=== PATIENT | female | born 1970 | race Caucasian/White ===

== ENCOUNTER 2017-06-08 18:27 | Emergency (ER) | payer OTHER ==
[2017-06-08] MEDS ORDERED: SODIUM CHLORIDE FLUSH 0.9% 10 ML SYRINGE IVP ONE ×3 (19:38→22:14)
--- NOTE | 2017-06-08 19:49 | ED Physician Documentation ---
PD HPI ABD PAIN - Stated complaint Stated Complaint: ABD PX - Chief complaint Chief Complaint: Abd Pain - History obtained from History obtained from: Patient - History of Present Illness Timing - onset: Today Timing - details: Gradual onset Pain level max: 8 Pain level now: 8 Quality: Aching, Pain Location: RUQ, RLQ Radiation: Other (non-radiating) Improved by: Other (nothing) Worsened by: Moving, Palpation Associated symptoms: Nausea. No: Fever, Vomiting, Hematemesis, Diarrhea, Constipation, Melena, Hematochezia, Dysuria, Hematuria Similar symptoms before: Has not had sx before Recently seen: Not recently seen - Additional information Additional information: Patient is status post cholecystectomy in 2007 Review of Systems Ten Systems: 10 systems reviewed and negative Constitutional: denies: Fever, Chills Ears: denies: Ear pain Nose: denies: Rhinorrhea / runny nose, Congestion Throat: denies: Sore throat Cardiac: denies: Chest pain / pressure Respiratory: denies: Cough GI: denies: Hematemesis, Bloody / black stool : denies: Dysuria, Frequency, Hesitancy, Discharge, Now EGA Skin: denies: Rash Musculoskeletal: denies: Neck pain, Back pain Neurologic: denies: Headache PD PAST MEDICAL HISTORY - Past Medical History Past Medical History: Yes GI: GERD - Past Surgical History Past Surgical History: Yes 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 - Present Medications Home Medications: Ambulatory Orders Medication Instructions Recorded Confirmed Ibuprofen 600 mg PO Q6HR PRN #30 tablet 04/13/14 06/08/17 Omeprazole [PriLOSEC] 40 mg PO DAILY 04/13/14 06/08/17 Estradiol 1 mg PO DAILY 08/22/16 06/08/17 Progesterone,Micronized 10 mg PO DAILY 10/24/16 06/08/17 [Progesterone] Hydrocodone/Acetaminophen 1 - 2 each PO Q6H PRN #14 tablet 06/08/17 [Hydrocodon-Acetaminophen 5-325] Ondansetron Odt [Zofran] 4 mg TL Q6H PRN #10 tablet 06/08/17 - Allergies Allergies/Adverse Reactions: Allergies Allergy/AdvReac Type Severity Reaction Status Date / Time amoxicillin [Amoxicillin] Allergy Hives Verified 04/13/14 05:33 - Social History Does the pt smoke?: No Smoking Status: Never smoker Does the pt drink ETOH?: Yes Does the pt have substance abuse?: No - POLST Patient has POLST: No PD ED PE NORMAL - Vitals Vital signs reviewed: Yes - General General: Alert and oriented X 3, No acute distress, Well developed/nourished - HEENT HEENT: Moist mucous membranes - Neck Neck: Supple, no meningeal sign - Cardiac Cardiac: RRR, Strong equal pulses - Respiratory Respiratory: No respiratory distress, Clear bilaterally - Abdomen Abdomen: Normal bowel sounds, Soft, Non distended, Other (Diffusely tender to palpation, worse in the right lower and left lower quadrant. No peritoneal signs) - Female Female : Pt declined - Back Back: No CVA TTP - Derm Derm: Warm and dry - Extremities Extremities: No edema, No calf tenderness / cord - Neuro Neuro: Alert and oriented X 3 - Psych Psych: Normal mood, Normal affect Results - Vitals Vitals: Vital Signs - 24 hr 06/08/17 06/08/17 06/08/17 18:50 20:58 23:25 Temperature 37.5 C Heart Rate 114 H 100 98 Respiratory 15 16 18 Rate Blood Pressure 139/95 H 151/93 H 155/89 H O2 Saturation 99 96 100 Oxygen O2 Source Room air - Labs Labs: Laboratory Tests 06/08/17 06/08/17 06/08/17 19:46 19:46 21:20 WBC 7.1 RBC 4.67 Hgb 13.4 Hct 40.5 MCV 86.7 MCH 28.7 MCHC 33.1 RDW 14.3 Plt Count 240 MPV 6.9 L Neut # 6.5 Lymph # 0.3 L Haralson # 0.2 Eos # 0.1 Baso # 0.0 Absolute Nucleated RBC 0.00 Nucleated RBCs 0.1 Sodium 137 Potassium 3.6 Chloride 105 Carbon Dioxide 23 Anion Gap 9.0 BUN 13 Creatinine 0.9 Estimated GFR (MDRD) 67 L Glucose 126 H Calcium 8.7 Total Bilirubin 0.8 AST 27 ALT 26 Alkaline Phosphatase 77 Total Protein 7.4 Albumin 4.3 Globulin 3.1 Albumin/Globulin Ratio 1.4 Lipase 24 Urine Color YELLOW Urine Clarity CLEAR Urine pH 6.5 Ur Specific Humble <=1.005 Urine Protein NEGATIVE Urine Glucose (UA) NEGATIVE Urine Ketones NEGATIVE Urine Occult Blood NEGATIVE Urine Nitrite NEGATIVE Urine Bilirubin NEGATIVE Urine Urobilinogen 0.2 (NORMAL) Ur Leukocyte Esterase NEGATIVE Ur Microscopic Review NOT INDICATED Urine Culture Comments NOT INDICATED - Rads (name of study) CT abdomen and pelvis Radiology: Prelim report reviewed, EMP read contemporaneously, See rad report ( Diverticulosis, no diverticulitis or other acute inflammatory process. Status post cholecystectomy. ) PD MEDICAL DECISION MAKING - ED course Complexity details: reviewed results, re-evaluated patient, considered differential, d/w patient, d/w family ED course: Patient is a 47-year-old female who presents to the emergency department with abdominal pain. Unclear etiology. No acute findings on CT scan, laboratory testing. Pain significantly improved in the emergency department, abdomen was soft, nontender nondistended on serial examination. She does have some recurrent nausea and pain, but no tenderness. No fevers. Very well-appearing, nontoxic. Counseled regarding the unclear nature of her symptoms and that she should return if she worsens. Will trial on pain medication and nausea medication for home and follow-up with her doctor. Patient counseled regarding signs and symptoms for which I believe and urgent re-evaluation would be necessary. Patient with good understanding of and agreement to plan and is comfortable going home at this time This document was made in part using voice recognition software. While efforts are made to proofread this document, sound alike and grammatical errors may occur. Departure - Departure Disposition: 01 Home, Self Care Clinical Impression: Abdominal pain Qualifiers: Abdominal location: lower abdomen, unspecified Qualified Code(s): R10.30 - Lower abdominal pain, unspecified Condition: Good Instructions: ED Abdominal Pain Unkn Cause Follow-Up: Lida Sorenson DO [Primary Care Provider] - Within 3 Days (for recheck) Prescriptions: Hydrocodone/Acetaminophen [Hydrocodon-Acetaminophen 5-325] 1 - 2 each PO Q6H PRN #14 tablet PRN Reason: pain Ondansetron Odt [Zofran] 4 mg TL Q6H PRN #10 tablet PRN Reason: Nausea / Vomiting Comments: The cause of your pain is unclear tonight. you may use the pain medications as needed for pain. Return if you worsen. Your CT scan, laboratory tests and urinalysis are normal tonight. Do not drink alcohol or drive while on narcotic pain medicine. Note that many narcotic pain relievers also contain tylenol/acetaminophen. Please ensure that your total dose of acetaminophen from all sources does not exceed 3 grams (3000mg) per day. You may constipated on this medication, take a stool softener such as "Colace" twice a day while you are on it. Also recommend a yvcu-toc-csdslue laxative such as senna or MiraLAX any day that you do not have a bowel movement. If you received narcotic pain medication in the emergency department, do not drive or operate machinery for the next 24 hours. Discharge Date/Time: 06/08/17 23:29
[2017-06-08 19:54] LABS: BASOPHILS % (AUTO) 0.2 %; EOSINOPHILS # (AUTO) 0.1 10^3/uL (0.0-0.7); EOSINOPHILS % (AUTO) 1.4 %; HCT - HEMATOCRIT 40.5 % (37.0-47.0); HGB - HEMOGLOBIN 13.4 g/dL (12.0-16.0); LYMPHOCYTES # (AUTO) 0.3 10^3/uL (1.5-3.5); LYMPHOCYTES % (AUTO) 3.6 %; MEAN CORPUSCULAR HEMOGLOBIN 28.7 pg (27.0-31.0); MEAN CORPUSCULAR HGB CONC 33.1 g/dL (32.0-36.0); MEAN CORPUSCULAR VOLUME 86.7 fL (81.0-99.0); MEAN PLATELET VOLUME 6.9 fL (7.9-10.8); MONOCYTES # (AUTO) 0.2 10^3/uL (0.0-1.0); MONOCYTES % (AUTO) 2.4 %; NEUTROPHILS # (AUTO) 6.5 10^3/uL (1.5-6.6); NEUTROPHILS % (AUTO) 92.4 %; NUCLEATED RED BLOOD CELLS AUTO 0.1 /100WBC; RED BLOOD COUNT 4.67 10^6/uL (4.20-5.40); RED CELL DISTRIBUTION WIDTH 14.3 % (12.0-15.0); UNCORRECTED WHITE BLOOD COUNT 7.1 x10^3/uL; WHITE BLOOD COUNT 7.1 x10^3/uL (4.8-10.8)
[2017-06-08 20:11] LABS: ALBUMIN/GLOBULIN RATIO 1.4 (1.0-2.2); BILIRUBIN,TOTAL 0.8 mg/dL (0.2-1.0); CALCIUM 8.7 mg/dL (8.5-10.3); CREATININE 0.9 mg/dL (0.4-1.0); POTASSIUM 3.6 mmol/L (3.5-5.0); TOTAL PROTEIN 7.4 g/dL (6.7-8.2)
[2017-06-08] MEDS ORDERED: ONDANSETRON 4 MG/2 ML VIAL IVP STA ×2 (20:21→22:01)
[2017-06-08] MEDS ORDERED: ONDANSETRON 4 MG/2 ML VIAL ONE ×2 (20:26→22:13)
[2017-06-08] MEDS ORDERED: IOPAMIDOL-300 100 ML VIAL IVP ONE (20:54)
--- NOTE | 2017-06-08 21:12 | CT Preliminary Report ---
Exam: CT Abdomen/Pelvis W/ IMPRESSION: 1. Diverticulosis, no diverticulitis or other acute inflammatory process. 2. Status post cholecystectomy. [facility] SITE ID: [id number]
--- NOTE | 2017-06-08 21:15 | CT Report ---
EXAM: CT ABDOMEN AND PELVIS EXAM DATE: 06/08/2017 09:01 PM. CLINICAL HISTORY: Lower abd pain, diarrhea. COMPARISONS: 10/29/2015 CT. TECHNIQUE: Routine helical CT imaging was performed through the abdomen and pelvis. IV contrast: 100 mL Isovue-300. Enteric contrast: No. Reconstructions: Coronal and sagittal. In accordance with CT protocol optimization, one or more of the following dose reduction techniques w ere utilized for this exam: automated exposure control, adjustment of mA and/or KV based on patient s ize, or use of iterative reconstructive technique. FINDINGS: Lung Bases: Unremarkable. Liver: Normal. No masses. Gallbladder/Bile Ducts: The gallbladder has been removed. No biliary dilatation. Spleen: Normal. Pancreas: Normal. Adrenal Glands: Normal. Kidneys: Normal. No masses or hydronephrosis. Peritoneal Cavity/Bowel: Diverticulosis, no diverticulitis. No bowel obstruction. No free air or flui d collections. No evidence of appendicitis. Pelvic Organs: Normal. The bladder and visualized pelvic organs are within normal limits. Vasculature: No aneurysms or other significant abnormality. Bones: No significant abnormality. Other: None. IMPRESSION: 1. Diverticulosis, no diverticulitis or other acute inflammatory process. 2. Status post cholecystectomy. [facility] Referring Provider Line: [phone] SITE ID: [id number]
[2017-06-08] MEDS ORDERED: KETOROLAC 60 MG/2 ML VIAL IVP STA (21:26)
[2017-06-08 21:27] LABS: BILIRUBIN,URINE NEGATIVE (NEGATIVE); PH,URINE 6.5 PH (5.0-7.5)
[2017-06-08 21:31] LABS: UA CHARGE (STRIP ONLY) YES; UR CULTURE IF IND NOT INDICATED
[2017-06-08] MEDS ORDERED: KETOROLAC 15 MG/ML VIAL ONE (21:46)
[2017-06-08] MEDS ORDERED: MORPHINE 2 MG/ML SYRINGE IVP STA (22:01)
[2017-06-08] MEDS ORDERED: MORPHINE 2 MG/ML SYRINGE ONE (22:13)
[2017-06-08] MEDS ORDERED: SODIUM CHLORIDE 0.9% 1,000 ML IV ONE (22:38)
[2017-06-08 23:25] VITALS: BP 155/89
== END 2017-06-08 23:29 | disposition home or self-care (01) ==
LOC: ED 18:27
DX: R10.31 Right lower quadrant pain (principal)
CPT/HCPCS: 36415; 74177; 80053; 81003; 83690; 85025; 96374; 96375; 96376; 99283; 99285; Q9967; 81001; 87086

== ENCOUNTER 2017-09-19 14:20 | Outpatient (CLI) | payer OTHER ==
--- NOTE | 2017-09-19 19:46 | Mammography Report ---
DIGITAL DIAGNOSTIC BILATERAL MAMMOGRAM: 09/19/2017 CLINICAL INDICATION: Left breast pain. COMPARISON: 12/10/2014, 10/29/2013, 10/25/2012, 12/21/2011, 12/12/2011, 12/15/2010. TECHNIQUE: Bilateral CC, MLO, left laterally exaggerated CC, true lateral, spot compression views. The breasts again demonstrate heterogeneously dense fibroglandular parenchyma bilaterally. Markers w ere placed in the left upper-outer quadrant, at the site of maximal tenderness identified by the hank ent. A few punctate, typically benign calcifications are present. No mammographic abnormality is ap preciated in the left upper-outer quadrant, at the site indicated by the markers. A questionable nod ule was seen on the original mammographic projections in the central left breast, but did not persist on additional compression. No suspicious masses, clustered microcalcifications, or regions of archi tectural distortion are identified. IMPRESSION: BENIGN FINDINGS. RECOMMENDATION: ROUTINE ANNUAL SCREENING UNLESS OTHERWISE CLINICALLY INDICATED. BIRADS CATEGORY: 2, BENIGN FINDINGS. STANDARD QUALIFYING STATEMENTS 1. This examination was reviewed with the aid of Computed-Aided Detection (CAD). 2. A negative or benign imaging report should not delay biopsy if clinically suspicious findings are present. Consider surgical consultation if warranted. More than 5% of cancers are not identified b y imaging. 3. Dense breasts may obscure an underlying neoplasm. JOB #: [id number] EXT JOB #:[id number]
== END 2017-09-19 14:21 | disposition home or self-care (01) ==
LOC: DI 14:20
PROVIDERS: ATTEND Family Medicine
DX: N64.4 Mastodynia (principal)
CPT/HCPCS: 77066

== ENCOUNTER 2017-09-26 14:12 | Outpatient (CLI) | payer OTHER | END 2017-09-26 14:13 | disposition home or self-care (01) | LOC: SC 14:12 | PROVIDERS: ATTEND Internal Medicine Pulmonary Disease | DX: G47.30 Sleep apnea, unspecified (principal); G47.10 Hypersomnia, unspecified; R06.83 Snoring; G47.8 Other sleep disorders | CPT/HCPCS: 99203; 99212 ==

== ENCOUNTER 2018-03-05 14:10 | Outpatient (CLI) | payer OTHER | END 2018-03-05 14:11 | disposition home or self-care (01) | LOC: SC 14:10 | PROVIDERS: ATTEND Nurse Practitioner Family | DX: G47.33 Obstructive sleep apnea (adult) (pediatric) (principal) | CPT/HCPCS: 99212; 99214 ==

== ENCOUNTER 2018-04-30 13:42 | Outpatient (CLI) | payer OTHER | END 2018-04-30 13:43 | disposition home or self-care (01) | LOC: SC 13:42 | PROVIDERS: ATTEND Nurse Practitioner Family | DX: G47.33 Obstructive sleep apnea (adult) (pediatric) (principal) | CPT/HCPCS: 99212; 99213 ==

== ENCOUNTER 2018-05-16 13:25 | Outpatient (CLI) | payer OTHER ==
[2018-05-16] MEDS ORDERED: ALBUTEROL NEB 2.5 MG/3 ML INH ONE (17:00)
== END 2018-05-16 13:26 | disposition home or self-care (01) ==
LOC: RT 13:25
PROVIDERS: ATTEND Family Medicine
DX: R05 Cough (principal)
CPT/HCPCS: 94060; 94729

== ENCOUNTER 2018-05-20 11:13 | Outpatient (CLI) | payer OTHER | END 2018-05-20 11:14 | disposition home or self-care (01) | LOC: DI 11:13 | PROVIDERS: ATTEND Family Medicine | DX: I49.3 Ventricular premature depolarization (principal) | CPT/HCPCS: 93306 ==

== ENCOUNTER 2018-11-30 10:03 | Outpatient (CLI) | payer OTHER ==
--- NOTE | 2018-11-30 13:53 | Mammography Report ---
Reason: MASTALGIA Procedure Date: 11/30/2018 Accession Number: [id number] / [id number] Procedure: SHLOMO - Diagnostic Dig Bilat CPT Code: FULL RESULT: EXAM: Diagnostic Dig Bilat DATE: 11/30/2018 10:58 AM CLINICAL HISTORY: Left breast pain radiating laterally. TECHNIQUE: Bilateral CC and MLO views as well as a left laterally exaggerated CC view and a left ML view were obtained. COMPARISON: 09/19/2017 through 10/25/2012. FINDINGS: The breasts demonstrate scattered fibroglandular densities bilaterally. No suspicious masses, architectural distortion or calcifications are identified in either breast. IMPRESSION: Negative examination RECOMMENDATION: Recommend routine annual Screening mammography unless otherwise clinically indicated. BIRADS CATEGORY 1: Negative STANDARD QUALIFYING STATEMENTS: 1. This examination was not reviewed with the aid of Computer-Aided Detection (CAD). 2. A negative or benign imaging report should not delay biopsy if clinically suspicious findings are present. Consider surgical consultation if warrented. More than 5% of cancers are not identified by imaging. 3. Dense breasts may obscure an underlying neoplasm. 4. This examination was reviewed with the aid of 3D imaging (tomography).
== END 2018-11-30 10:04 | disposition home or self-care (01) ==
LOC: DI 10:03
PROVIDERS: ATTEND Family Medicine
DX: N64.4 Mastodynia (principal)
CPT/HCPCS: 77066

== ENCOUNTER 2020-01-22 07:42 | Outpatient (CLI) | payer OTHER ==
--- NOTE | 2020-01-22 11:24 | Mammography Report ---
Reason: ROUTINE MAMMO Procedure Date: 01/22/2020 Accession Number: [id number] / [id number] Procedure: SHLOMO - Screening Mammo w/Albert CPT Code: Final Report FULL RESULT: EXAM: Screening Mammo w/Albert DATE: 01/22/2020 8:23 AM CLINICAL HISTORY: Routine screening TECHNIQUE: (B) - Bilateral CC and MLO views were obtained. COMPARISON: 11/30/2018, 09/19/2017, 12/10/2014, 10/29/2013, 10/25/2012, 12/12/2011 and 12/15/2010 PARENCHYMAL PATTERN: (D) - The breasts demonstrate heterogeneously dense fibroglandular parenchyma bilaterally. FINDINGS: No significant change. There are no suspicious calcifications, skin thickening, or areas of distortion. Small nodule right breast 9:00 position 4 to 5 cm from the nipple MLO albert 36 and CC albert 23 and small nodule left breast 2:00 position 4 to 5 cm from the nipple MLO albert 15 and CC albert 43 obscured on 2-D images but appear to be present on prior tomographic images from 11/30/2018. IMPRESSION: Benign findings. BI-RADS category 2. RECOMMENDATION: (ANNUAL) - Recommend routine annual screening mammography. BI-RADS CATEGORY: (2) - Benign Findings. STANDARD QUALIFYING STATEMENTS: 1. This examination was not reviewed with the aid of Computer-Aided Detection (CAD). 2. A negative or benign imaging report should not preclude biopsy if clinically suspicious findings are present. 3. Dense breasts may obscure an underlying neoplasm. 4. This examination was reviewed with the aid of 3D breast imaging (tomosynthesis).
== END 2020-01-22 07:43 | disposition home or self-care (01) ==
LOC: DI 07:42
DX: Z12.31 Encounter for screening mammogram for malignant neoplasm of breast (principal)
CPT/HCPCS: 77063; 77067

== ENCOUNTER 2020-03-13 18:58 | Outpatient (CLI) | payer OTHER ==
--- NOTE | 2020-03-13 20:25 | Ultrasound Report ---
Reason: LT THIGH PAIN Procedure Date: 03/13/2020 Accession Number: [id number] / [id number] Procedure: US - Duplex Ext Veins Left CPT Code: Final Report FULL RESULT: EXAM: LEFT LOWER EXTREMITY VENOUS ULTRASOUND EXAM DATE: 03/13/2020 07:03 PM. CLINICAL HISTORY: LT THIGH PAIN. COMPARISON: None. TECHNIQUE: Real-time sonographic vascular imaging was performed by the plaster tender through the lower extremity utilizing both color-flow and Doppler spectral analysis. Multiple telemarketing representative static images were saved for review. FINDINGS: Common Femoral Vein (CFV): Normal. CFV-GSV Junction: Normal. Profunda Femoral Vein (PFV): Normal. Femoral Vein (FV) Prox: Normal. Femoral Vein (FV) Mid: Normal. Femoral Vein (FV) Dist: Normal. Popliteal Vein: Normal. Posterior Tibial Veins: Normal. Peroneal Veins: Normal. Contralateral Side CFV: Normal. Other: None. IMPRESSION: No evidence for deep venous thrombosis. [facility] The call report notification system was initiated by Dr. Jacquelyn Gilman at 08:23 PM on 03/13/2020.
== END 2020-03-13 18:59 | disposition home or self-care (01) ==
LOC: DI 18:58
PROVIDERS: ATTEND Family Medicine
DX: M79.652 Pain in left thigh (principal)

== ENCOUNTER 2021-01-20 14:36 | Outpatient (CLI) | payer OTHER ==
--- NOTE | 2021-01-21 14:14 | Mammography Report ---
BILATERAL DIGITAL SCREENING MAMMOGRAM 3D/2D: 01/20/2021 CLINICAL: Routine screening. Comparison is made to exams dated: 01/22/2020 mammogram, 11/30/2018 mammogram, and 09/19/2017 mammogra m - [facility]. The tissue of both breasts is heterogeneously dense. This may lowe r the sensitivity of mammography. No significant masses, calcifications, or other findings are seen in either breast. There has been no significant interval change. IMPRESSION: NEGATIVE There is no mammographic evidence of malignancy. A 1 year screening mammogram is recommended. This exam was interpreted at Station ID: [id number]. NOTE: For mammograms, a report in lay terms will be sent to the patient. Approximately 15% of breast malignancies will not be visualized mammographically. In the management of a palpable breast mass, a negative mammogram must not discourage biopsy of a clinically suspicious lesion. Electronically Signed By: Damari sun/penrad:01/20/2021 17:24:08 ACR BI-RADS Category 1: Negative 3341F PARENCHYMAL PATTERN: (D) - The breast(s) demonstrate(s) heterogeneously dense fibroglandular adam shetty. BI-RADS CATEGORY: (1) - 1 RECOMMENDATION: (ANNUAL) - Recommend routine annual screening mammography. [id number] 1 year screening LATERALITY: (B)
== END 2021-01-20 14:37 | disposition home or self-care (01) ==
LOC: DI.N 14:36
DX: Z12.31 Encounter for screening mammogram for malignant neoplasm of breast (principal)

== ENCOUNTER 2021-12-28 08:00 | Outpatient (CLI) | payer OTHER ==
[2021-12-28 19:36] LABS: BILIRUBIN,URINE NEGATIVE (NEGATIVE); GLUCOSE, URINE (UA) NEGATIVE (NEGATIVE); KETONES,URINE (UA) NEGATIVE (NEGATIVE); LEUKOCYTE ESTERASE, URINE NEGATIVE (NEGATIVE); NITRITE,URINE NEGATIVE (NEGATIVE); OCCULT BLOOD,URINE SMALL (NEGATIVE); PROTEIN,URINE NEGATIVE (NEGATIVE); UROBILINOGEN,URINE 0.2 (NORMAL) E.U./dL (NORMAL)
[2021-12-28 19:41] LABS: CLARITY,URINE HAZY (CLEAR)
[2021-12-28 19:59] LABS: WBC,URINE 0-3 /HPF (0-5)
[2021-12-28 20:00] LABS: BACTERIA,URINE None Seen /HPF (None Seen); RBC,URINE 0-5 /HPF (0-5); SQUAMOUS EPITHELIAL CELL,UR FEW Squamous (<= Few)
== END 2021-12-28 23:59 ==
LOC: LAB 08:00
PROVIDERS: ATTEND Nurse Practitioner Family
DX: M54.50 Low back pain, unspecified (principal); R31.9 Hematuria, unspecified; N93.9 Abnormal uterine and vaginal bleeding, unspecified
CPT/HCPCS: 36415; 80048; 81001; 85025; 87086

== ENCOUNTER 2021-12-28 15:04 | Outpatient (CLI) | payer OTHER ==
[2021-12-28 18:40] LABS: BASOPHILS % (AUTO) 0.3 %; EOSINOPHILS # (AUTO) 0.2 10^3/uL (0.0-0.7); EOSINOPHILS % (AUTO) 3.4 %; HCT - HEMATOCRIT 38.7 % (37.0-47.0); HGB - HEMOGLOBIN 12.7 g/dL (12.0-16.0); LYMPHOCYTES # (AUTO) 1.7 10^3/uL (1.5-3.5); LYMPHOCYTES % (AUTO) 26.1 %; MEAN CORPUSCULAR HGB CONC 32.8 g/dL (32.0-36.0); MEAN CORPUSCULAR VOLUME 88.4 fL (81.0-99.0); MEAN PLATELET VOLUME 9.2 fL (7.9-10.8); MONOCYTES # (AUTO) 0.4 10^3/uL (0.0-1.0); MONOCYTES % (AUTO) 5.4 %; NEUTROPHILS # (AUTO) 4.2 10^3/uL (1.5-6.6); NEUTROPHILS % (AUTO) 64.6 %; PLT - PLATELET COUNT 259 10^3/uL (130-450); RED BLOOD COUNT 4.38 10^6/uL (4.20-5.40); RED CELL DISTRIBUTION WIDTH 12.4 % (12.0-15.0); WHITE BLOOD COUNT 6.4 x10^3/uL (4.8-10.8)
[2021-12-28 18:58] LABS: CALCIUM 9.1 mg/dL (8.5-10.3); CREATININE 0.9 mg/dL (0.4-1.0); POTASSIUM 3.5 mmol/L (3.5-5.0)
== END 2021-12-28 15:05 | disposition home or self-care (01) ==
LOC: LAB.N 15:04
PROVIDERS: ATTEND Nurse Practitioner Family
DX: R31.9 Hematuria, unspecified (principal); M54.50 Low back pain, unspecified; N93.9 Abnormal uterine and vaginal bleeding, unspecified
CPT/HCPCS: 36415; 80048; 81001; 85025; 87086

== ENCOUNTER 2022-01-05 07:32 | Outpatient (CLI) | payer OTHER ==
[2022-01-05 12:36] LABS: BILIRUBIN,URINE NEGATIVE (NEGATIVE); GLUCOSE, URINE (UA) NEGATIVE (NEGATIVE); KETONES,URINE (UA) NEGATIVE (NEGATIVE); LEUKOCYTE ESTERASE, URINE NEGATIVE (NEGATIVE); NITRITE,URINE NEGATIVE (NEGATIVE); OCCULT BLOOD,URINE NEGATIVE (NEGATIVE); PROTEIN,URINE NEGATIVE (NEGATIVE); UROBILINOGEN,URINE 0.2 (NORMAL) E.U./dL (NORMAL)
[2022-01-05 12:54] LABS: ESTIMATED AVERAGE GLUCOSE 114 mg/dL (70-100); HEMOGLOBIN A1c% 5.6 % (4.27-6.07)
[2022-01-05 13:01] LABS: AMORPHOUS SEDIMENT,UR Marked /LPF; BACTERIA,URINE None Seen /HPF (None Seen); CLARITY,URINE CLOUDY (CLEAR); RBC,URINE None Seen /HPF (0-5); SQUAMOUS EPITHELIAL CELL,UR FEW Squamous (<= Few); WBC,URINE 0-3 /HPF (0-5)
[2022-01-05 13:13] LABS: THYROID STIMULATING HORMONE 1.29 uIU/mL (0.34-5.60)
[2022-01-05 13:17] LABS: CHOL/HDL RATIO 4.3 (<4.4); CHOLESTEROL 226 mg/dL; HDL CHOLESTEROL 53 mg/dL; LDL CHOLESTEROL,CALCULATED 153 mg/dL; LDL/HDL RATIO 2.9 (<4.4); TRIGLYCERIDES 98 mg/dL; VLDL CHOLESTEROL 20 mg/dL
== END 2022-01-05 07:33 | disposition home or self-care (01) ==
LOC: LAB.N 07:32
PROVIDERS: ATTEND Nurse Practitioner Family
DX: M54.50 Low back pain, unspecified (principal); R31.9 Hematuria, unspecified; N93.9 Abnormal uterine and vaginal bleeding, unspecified; Z13.220 Encounter for screening for lipoid disorders; Z13.21 Encounter for screening for nutritional disorder; Z68.33 Body mass index [BMI] 33.0-33.9, adult
CPT/HCPCS: 36415; 80061; 81001; 82306; 83036; 83721; 84443; 87086

== ENCOUNTER 2022-02-16 15:21 | Outpatient (CLI) | payer OTHER ==
--- NOTE | 2022-02-17 15:52 | Mammography Report ---
BILATERAL DIGITAL SCREENING MAMMOGRAM 3D/2D: 02/16/2022 CLINICAL: Routine screening. Comparison is made to exams dated: 01/20/2021 mammogram, 01/22/2020 mammogram, 11/30/2018 mammogram, mammogram, and 12/10/2014 mammogram - [facility]. The tissue of both breast s is heterogeneously dense. This may lower the sensitivity of mammography. No significant masses, calcifications, or other findings are seen in either breast. There has been no significant interval change. IMPRESSION: NEGATIVE There is no mammographic evidence of malignancy. A 1 year screening mammogram is recommended. This exam was interpreted at Station ID: [id number]. NOTE: For mammograms, a report in lay terms will be sent to the patient. Approximately 15% of breast malignancies will not be visualized mammographically. In the management of a palpable breast mass, a negative mammogram must not discourage biopsy of a clinically suspicious lesion. Electronically Signed By: Sin goncalves/lida:02/17/2022 09:14:22 ACR BI-RADS Category 1: Negative 3341F PARENCHYMAL PATTERN: (D) - The breast(s) demonstrate(s) heterogeneously dense fibroglandular parenchy ma. BI-RADS CATEGORY: (1) - 1 RECOMMENDATION: (ANNUAL) - Recommend routine annual screening mammography. [id number] 1 year screening LATERALITY: (B)
== END 2022-02-16 15:22 | disposition home or self-care (01) ==
LOC: DI.N 15:21
PROVIDERS: ATTEND Nurse Practitioner Family
DX: Z12.31 Encounter for screening mammogram for malignant neoplasm of breast (principal)

== ENCOUNTER 2022-09-11 12:23 | Emergency (ER) | payer OTHER ==
[2022-09-11 12:40] VITALS: BP 172/87
--- NOTE | 2022-09-11 13:53 | ED Physician Documentation ---
History of Present Illness - Stated complaint Stated Complaint: CHEST PX/COUGH - Chief complaint Chief Complaint: Resp - Additonal information Additional information: Patient 52-year-old female presenting to the emergency department with cough and chest pain. Reports diagnosed with pneumonia approximately 1.5 weeks ago. Was initially feeling better however for the last 2 days has developed persistent cough. Chest pain is associated with cough. Denies previous episodes of chest pain. Denies recent fevers. Denies shortness of breath, abdominal pain, nausea, vomiting, diarrhea, constipation. 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 - Present Medications Home Medications: Ambulatory Orders Medication Instructions Recorded Confirmed Ibuprofen 600 mg PO Q6HR PRN #30 tablet 04/13/14 06/08/17 Omeprazole [PriLOSEC] 40 mg PO DAILY 04/13/14 06/08/17 estradioL [Estradiol] 1 mg PO DAILY 08/22/16 06/08/17 Progesterone, Micronized 10 mg PO DAILY 10/24/16 06/08/17 [Progesterone] Hydrocodone/Acetaminophen 1 - 2 each PO Q6H PRN #14 tablet 06/08/17 [Hydrocodon-Acetaminophen 5-325] Ondansetron Odt [Zofran] 4 mg TL Q6H PRN #10 tablet 06/08/17 Benzonatate [Tessalon] 200 mg PO TID PRN #30 cap 09/11/22 Codeine Phosphate/Guaifenesin 5 ml PO DAILY PM #100 ml 09/11/22 [Codeine-Guaifen 10-100 mg/5 ml] - Allergies Allergies/Adverse Reactions: Allergies Allergy/AdvReac Type Severity Reaction Status Date / Time amoxicillin [Amoxicillin] Allergy Hives Verified 09/11/22 12:40 - Social History Does the pt smoke?: No Smoking Status: Never smoker Does the pt drink ETOH?: Yes Does the pt have substance abuse?: No - POLST Patient has POLST: No PD ED PE NORMAL - General General: Alert and oriented X 3, No acute distress, Well developed/nourished - HEENT HEENT: Atraumatic, PERRL - Neck Neck: Supple, no meningeal sign - Cardiac Cardiac: RRR - Respiratory Respiratory: No respiratory distress, Clear bilaterally - Abdomen Abdomen: Normal bowel sounds - Female Female : Deferred - Rectal Rectal: Deferred - Derm Derm: Normal color - Extremities Extremities: No deformity - Neuro Neuro: Alert and oriented X 3, brace maker 2-12 intact, No motor deficit Results - Vitals Vitals: Vital Signs - 24 hr 09/11/22 12:38 Temperature 36.7 C Heart Rate 106 H Respiratory 16 Rate Blood Pressure 172/87 H O2 Saturation 98 Oxygen O2 Source Room air - EKG (time done) 1544 Rate: Rate (enter#) (96) Rhythm: NSR [place]: Normal Intervals: Normal [place] QRS: Normal Ischemia: Normal ST segments Computer interpretation: Agree with computer - Labs Labs: Laboratory Tests 09/11/22 09/11/22 09/11/22 14:05 14:05 14:05 WBC 4.8 RBC 4.18 L Hgb 12.1 Hct 37.6 MCV 90.0 MCH 28.9 MCHC 32.2 RDW 12.3 Plt Count 374 MPV 8.6 Neut # (Auto) 2.9 Lymph # (Auto) 1.3 L Mayes # (Auto) 0.3 Eos # (Auto) 0.2 Baso # (Auto) 0.0 Absolute Nucleated RBC 0.00 Nucleated RBC % 0.0 Sodium 132 L Potassium 4.1 Chloride 97 L Carbon Dioxide 24 Anion Gap 11.0 BUN 13 Creatinine 0.8 Estimated GFR (MDRD) 75 L Glucose 115 H Calcium 9.2 Total Bilirubin 0.5 AST 25 ALT 21 Alkaline Phosphatase 97 Troponin I High Sens 3.2 Total Protein 7.9 Albumin 4.2 Globulin 3.7 Albumin/Globulin Ratio 1.1 Lipase 35 PD MEDICAL DECISION MAKING - ED course Complexity details: reviewed results, d/w patient ED course: Patient 52-year-old female presenting to the emergency department with persistent cough 1.5 weeks after diagnosis with pneumonia. Afebrile, he medically stable. Clear aeration in all lung ross. X-ray negative for pulmonary consolidation. EKG, lab work all within normal limits. Will discharge with Tessalon to help manage her cough. Encouraged her to follow-up with her primary care doctor or return to the emergency department as needed. Departure - Departure Disposition: 01 Home, Self Care Clinical Impression: Cough Prescriptions: Codeine Phosphate/Guaifenesin [Codeine-Guaifen 10-100 mg/5 ml] 5 ml PO DAILY PM #100 ml Benzonatate [Tessalon] 200 mg PO TID PRN #30 cap PRN Reason: Cough Comments: Thank you for allowing us to care for you today at [facility]. Testing today in the emergency department did not show any indications of recurrent pneumonia. Will be discharging with some medication to help with your cough. [facility] [place] One of these medications Is a cough syrup containing codeine. Please be aware that this medication cause sedation. It should not be used if you are operating a motor vehicle, using of machinery or you are the sole waitress of young children. Please make a follow-up appoint with your primary care doctor soon as possible. If anytime you develop any new or worsening symptoms please not hesitate to return to the emergency department.
[2022-09-11 14:11] LABS: BASOPHILS % (AUTO) 0.6 %; EOSINOPHILS # (AUTO) 0.2 10^3/uL (0.0-0.7); EOSINOPHILS % (AUTO) 3.5 %; HCT - HEMATOCRIT 37.6 % (37.0-47.0); HGB - HEMOGLOBIN 12.1 g/dL (12.0-16.0); LYMPHOCYTES # (AUTO) 1.3 10^3/uL (1.5-3.5); LYMPHOCYTES % (AUTO) 27.9 %; MEAN CORPUSCULAR HEMOGLOBIN 28.9 pg (27.0-31.0); MEAN CORPUSCULAR HGB CONC 32.2 g/dL (32.0-36.0); MEAN PLATELET VOLUME 8.6 fL (7.9-10.8); MONOCYTES # (AUTO) 0.3 10^3/uL (0.0-1.0); MONOCYTES % (AUTO) 6.7 %; NEUTROPHILS # (AUTO) 2.9 10^3/uL (1.5-6.6); NEUTROPHILS % (AUTO) 61.3 %; PLT - PLATELET COUNT 374 10^3/uL (130-450); RED BLOOD COUNT 4.18 10^6/uL (4.20-5.40); RED CELL DISTRIBUTION WIDTH 12.3 % (12.0-15.0); WHITE BLOOD COUNT 4.8 x10^3/uL (4.8-10.8)
[2022-09-11] MEDS ORDERED: BENZONATATE 100 MG CAPSULE PO STA (14:24)
[2022-09-11 14:28] LABS: ALBUMIN 4.2 g/dL (3.2-5.5); ALBUMIN/GLOBULIN RATIO 1.1 (1.0-2.2); BILIRUBIN,TOTAL 0.5 mg/dL (0.2-1.0); CALCIUM 9.2 mg/dL (8.5-10.3); CREATININE 0.8 mg/dL (0.4-1.0); POTASSIUM 4.1 mmol/L (3.5-5.0); TOTAL PROTEIN 7.9 g/dL (6.7-8.2)
--- NOTE | 2022-09-11 14:42 | XRAY Report ---
PROCEDURE: Chest 2 View X-Ray INDICATIONS: cough TECHNIQUE: 2 views of chest were obtained COMPARISON: None. FINDINGS: Heart size, mediastinum and pulmonary vasculature normal. Lungs and pleural spaces are clear. Osseous structures normal. IMPRESSION: Normal two-view chest x-ray Reviewed by: Joseph Ferguson MD on 09/11/2022 1:41 PM [place] Approved by: Joseph Ferguson MD on 09/11/2022 1:41 PM [place] Station ID: [id number]
== END 2022-09-11 15:48 | disposition home or self-care (01) ==
LOC: ED 12:23
DX: R05.9 Cough, unspecified (principal); Z87.01 Personal history of pneumonia (recurrent)
CPT/HCPCS: 36415; 71046; 80053; 83690; 84484; 85025; 93005; 99284; A9270

== ENCOUNTER 2022-09-19 08:00 | Outpatient (CLI) | payer OTHER | END 2022-09-19 23:59 | disposition home or self-care (01) | LOC: LAB.N 08:00 | PROVIDERS: ATTEND Physician Assistant | DX: R05.3 Chronic cough (principal) | CPT/HCPCS: 36415; 85379 ==

== ENCOUNTER 2023-02-15 15:10 | Outpatient (CLI) | payer OTHER ==
--- NOTE | 2023-02-17 09:23 | Mammography Report ---
BILATERAL DIGITAL SCREENING MAMMOGRAM 3D/2D: 02/15/2023 CLINICAL: Routine screening. Comparison is made to exams dated: 02/16/2022 mammogram, 01/20/2021 mammogram, 01/22/2020 mammogram, mammogram, 09/19/2017 mammogram, and 12/10/2014 mammogram - [facility]. Both breasts are heterogeneously dense, which may obscure small masses (category c / 51-75% glandular tissue). No significant masses, calcifications, or other findings are seen in either breast. There has been no significant interval change. IMPRESSION: NEGATIVE There is no mammographic evidence of malignancy. A 1 year screening mammogram is recommended. Based on the Tyrer Cuzick model (a risk assessment model) the patients lifetime risk is 12.4% and he r 10 year risk is 3.2%. According to the ACR, ACS, and NCCN guidelines, an annual breast MRI exam ana luisa ng with mammogram is recommended if the patients lifetime risk is 20% or greater. This exam was interpreted at Station ID: [id number]. NOTE: For mammograms, a report in lay terms will be sent to the patient. Approximately 15% of breast malignancies will not be visualized mammographically. In the management of a palpable breast mass, a negative mammogram must not discourage biopsy of a clinically suspicious lesion. Electronically Signed By: Tomas trevizo/lida:02/16/2023 08:46:34 letter sent: No_Letter ACR BI-RADS Category 1: Negative 3341F PARENCHYMAL PATTERN: (D) - The breast(s) demonstrate(s) heterogeneously dense fibroglandular adam shetty. BI-RADS CATEGORY: (1) - 1 Mammogram [id number] 1 year screening LATERALITY: (B)
== END 2023-02-15 15:11 | disposition home or self-care (01) ==
LOC: DI.N 15:10
DX: Z12.31 Encounter for screening mammogram for malignant neoplasm of breast (principal)

== ENCOUNTER 2023-05-04 07:25 | Outpatient (CLI) | payer OTHER ==
[2023-05-04 11:49] LABS: BASOPHILS % (AUTO) 0.7 %; EOSINOPHILS # (AUTO) 0.2 10^3/uL (0.0-0.7); EOSINOPHILS % (AUTO) 4.5 %; HCT - HEMATOCRIT 41.3 % (37.0-47.0); HGB - HEMOGLOBIN 13.1 g/dL (12.0-16.0); LYMPHOCYTES # (AUTO) 1.3 10^3/uL (1.5-3.5); LYMPHOCYTES % (AUTO) 31.4 %; MEAN CORPUSCULAR HEMOGLOBIN 28.2 pg (27.0-31.0); MEAN CORPUSCULAR HGB CONC 31.7 g/dL (32.0-36.0); MEAN CORPUSCULAR VOLUME 88.8 fL (81.0-99.0); MEAN PLATELET VOLUME 9.7 fL (7.9-10.8); MONOCYTES # (AUTO) 0.3 10^3/uL (0.0-1.0); MONOCYTES % (AUTO) 7.8 %; NEUTROPHILS # (AUTO) 2.3 10^3/uL (1.5-6.6); NEUTROPHILS % (AUTO) 55.1 %; PLT - PLATELET COUNT 277 10^3/uL (130-450); RED BLOOD COUNT 4.65 10^6/uL (4.20-5.40); RED CELL DISTRIBUTION WIDTH 12.7 % (12.0-15.0); WHITE BLOOD COUNT 4.2 x10^3/uL (4.8-10.8)
[2023-05-04 12:06] LABS: ALBUMIN 4.5 g/dL (3.2-5.5); ALBUMIN/GLOBULIN RATIO 1.4 (1.0-2.2); ALKALINE PHOSPHATASE 72 IU/L (42-121); ALT ALANINE AMINOTRANSFERASE 19 IU/L (10-60); AST ASPARTATE AMINOTRANSFERASE 25 IU/L (10-42); BILIRUBIN,TOTAL 0.8 mg/dL (0.2-1.0); BUN - BLOOD UREA NITROGEN 17 mg/dL (6-20); CALCIUM 9.1 mg/dL (8.5-10.3); CARBON DIOXIDE - CO2 24 mmol/L (21-32); CHLORIDE 102 mmol/L (101-111); CHOL/HDL RATIO 4.5 (<4.4); CHOLESTEROL 235 mg/dL; GFR - MDRD 58 (>89); GLUCOSE 129 mg/dL (70-100); HDL CHOLESTEROL 52 mg/dL; LDL CHOLESTEROL,CALCULATED 155 mg/dL; POTASSIUM 4.2 mmol/L (3.5-5.0); SODIUM 135 mmol/L (135-145); TOTAL PROTEIN 7.8 g/dL (6.7-8.2); TRIGLYCERIDES 141 mg/dL; VLDL CHOLESTEROL 28 mg/dL
== END 2023-05-04 07:26 | disposition home or self-care (01) ==
LOC: LAB.N 07:25
PROVIDERS: ATTEND Nurse Practitioner Family
DX: I10 Essential (primary) hypertension (principal); Z13.220 Encounter for screening for lipoid disorders
CPT/HCPCS: 36415; 80053; 80061; 83721; 85025

== ENCOUNTER 2023-06-24 20:31 | Emergency (ER) | payer OTHER ==
[2023-06-24 21:07] LABS: BASOPHILS % (AUTO) 0.2 %; EOSINOPHILS # (AUTO) 0.2 10^3/uL (0.0-0.7); EOSINOPHILS % (AUTO) 3.9 %; HCT - HEMATOCRIT 40.1 % (37.0-47.0); HGB - HEMOGLOBIN 12.8 g/dL (12.0-16.0); LYMPHOCYTES # (AUTO) 1.9 10^3/uL (1.5-3.5); LYMPHOCYTES % (AUTO) 33.6 %; MEAN CORPUSCULAR HEMOGLOBIN 28.5 pg (27.0-31.0); MEAN CORPUSCULAR HGB CONC 31.9 g/dL (32.0-36.0); MEAN CORPUSCULAR VOLUME 89.3 fL (81.0-99.0); MEAN PLATELET VOLUME 9.3 fL (7.9-10.8); MONOCYTES # (AUTO) 0.4 10^3/uL (0.0-1.0); MONOCYTES % (AUTO) 7.2 %; NEUTROPHILS # (AUTO) 3.1 10^3/uL (1.5-6.6); NEUTROPHILS % (AUTO) 54.9 %; PLT - PLATELET COUNT 244 10^3/uL (130-450); RED BLOOD COUNT 4.49 10^6/uL (4.20-5.40); RED CELL DISTRIBUTION WIDTH 12.3 % (12.0-15.0); WHITE BLOOD COUNT 5.7 x10^3/uL (4.8-10.8)
--- NOTE | 2023-06-24 21:07 | XRAY Report ---
PROCEDURE: Chest 1 View X-Ray INDICATIONS: Chest Pain TECHNIQUE: One view of the chest was acquired. COMPARISON: None. FINDINGS: Surgical changes and devices: None. Lungs and pleura: No pleural effusions or pneumothorax. Lungs are clear, considering reduced inspir atory volume and body habitus. Mediastinum: Mediastinal contours appear normal. Heart size is normal. Bones and chest wall: No suspicious bony lesions. Overlying soft tissues appear unremarkable. IMPRESSION: No acute cardiopulmonary process. Reviewed by: Stan Sesay MD on 06/24/2023 9:05 PM PDT Approved by: Stan Sesay MD on 06/24/2023 9:05 PM PDT Station ID: [id number]
[2023-06-24 21:21] LABS: ALBUMIN 4.3 g/dL (3.2-5.5); ALBUMIN/GLOBULIN RATIO 1.5 (1.0-2.2); BILIRUBIN,TOTAL 0.3 mg/dL (0.2-1.0); CALCIUM 8.8 mg/dL (8.5-10.3); CREATININE 0.9 mg/dL (0.4-1.0); POTASSIUM 3.6 mmol/L (3.5-5.0); TOTAL PROTEIN 7.2 g/dL (6.7-8.2)
[2023-06-24 21:28] LABS: TROPONIN I HIGH SENSITIVITY 3.4 ng/L (2.3-14.8)
--- NOTE | 2023-06-24 22:15 | ED Physician Documentation ---
PD HPI CHEST PAIN - Stated complaint Stated Complaint: CHEST PX - Chief complaint Chief Complaint: Cardiac - History obtained from History obtained from: Patient - Additional information Additional information: HPI from patient. Patient c/o chest pain, left anterior chest wall with radiation to left shoulder, associated with mild shortness of breath, diaphoresis. Onset initially at 10 AM today while at home undertaking light activity (packing for a move). Symptoms have been episodic since onset this morning without inciting event/factors. Denies h/o similar symptoms. She says she had a negative treadmill stress test approximately 5 years ago. No ameliorating nor exacerbating factors. Asymptomatic at the time of this H+P. Review of Systems Constitutional: denies: Fever Cardiac: reports: Chest pain / pressure. denies: Palpitations, Pedal edema, Calf pain Respiratory: reports: Dyspnea. denies: Cough GI: reports: Reviewed and negative Musculoskeletal: denies: Extremity swelling PD PAST MEDICAL HISTORY - Past Medical History GI: GERD - Past Surgical History Past Surgical History: Yes General: Cholecystectomy /RESIN REMOVER: Oophrectomy - Present Medications Home Medications: Ambulatory Orders Medication Instructions Recorded Confirmed Omeprazole [PriLOSEC] 40 mg PO DAILY 04/13/14 06/24/23 estradioL [Estradiol] 1 mg PO DAILY 08/22/16 06/24/23 Progesterone, Micronized 10 mg PO DAILY 10/24/16 06/24/23 [Progesterone] Lisinopril [Zestril] 10 mg PO DAILY 06/24/23 06/24/23 - Allergies Allergies/Adverse Reactions: Allergies Allergy/AdvReac Type Severity Reaction Status Date / Time amoxicillin [Amoxicillin] Allergy Hives Verified 06/24/23 20:36 - Social History Does the pt smoke?: No Smoking Status: Never smoker Does the pt drink ETOH?: Yes Does the pt have substance abuse?: No - POLST Patient has POLST: No PD ED PE NORMAL - Vitals Vital signs reviewed: Yes - General General: Alert and oriented X 3, No acute distress, Well developed/nourished - Neck Neck: Supple, no meningeal sign - Cardiac Cardiac: RRR, No murmur, No gallop, No rub - Respiratory Respiratory: No respiratory distress, Clear bilaterally - Abdomen Abdomen: Soft, Non tender - Derm Derm: Normal color, Warm and dry - Extremities Extremities: No edema Results - Vitals Vitals: Oxygen O2 Source Room air - EKG (time done) No standard instances EKG releavant findings:: EKG personally interpreted by author of this note. Relevant findings are: Rate: Rate (enter#) (94) Rhythm: NSR [place]: LAD Intervals: Normal [place] QRS: Normal Ischemia: Normal ST segments - Labs Labs: Laboratory Tests 06/24/23 06/24/23 20:59 20:59 WBC 5.7 RBC 4.49 Hgb 12.8 Hct 40.1 MCV 89.3 MCH 28.5 MCHC 31.9 L RDW 12.3 Plt Count 244 MPV 9.3 Neut # (Auto) 3.1 Lymph # (Auto) 1.9 [place] # (Auto) 0.4 Eos # (Auto) 0.2 Baso # (Auto) 0.0 Absolute Nucleated RBC 0.00 Nucleated RBC % 0.0 Sodium 136 Potassium 3.6 Chloride 103 Carbon Dioxide 26 Anion Gap 7.0 BUN 16 Creatinine 0.9 Estimated GFR (MDRD) 65 L Glucose 145 H Calcium 8.8 Total Bilirubin 0.3 AST 20 ALT 19 Alkaline Phosphatase 89 Troponin I High Sens 3.4 B-Natriuretic Peptide 15 Total Protein 7.2 Albumin 4.3 Globulin 2.9 Albumin/Globulin Ratio 1.5 Lipase 33 - Rads (name of study) CXR Relevant Findings:: Prelim report reviewed, EMP independent interpretation of test (I reviewed these images and my interpretation is no acute cardiopulmonary abnormalities on these plain-film xrays), See rad report PD Medical Decision Making - ED course Complexity details: reviewed results, re-evaluated patient, considered differential, d/w patient ED course: Tests ordered and reviewed by me: CBC, ER abdominal panel, hs-cTn, EKG, CXR. There are no concerning nor diagnostic findings on these tests. She has normal CBC, ER abdominal panel (except insignificant finding of 145 glucose). Normal BNP (15), normal hs-cTn (3.4) Reevaluated after tests resulted and she remains asymptomatic. Etiology of patient's symptoms is unclear at this time, but no further testing indicated from emergent standpoint; advised to follow up with PMD, next available appointment for reevaluation of symptoms and consideration of further testing. Return precautions discussed. Departure - Departure Disposition: 01 Home, Self Care Clinical Impression: Chest pain Qualifiers: Chest pain type: unspecified Qualified Code(s): R07.9 - Chest pain, unspecified Condition: Good Instructions: ED Chest Pain Atypical Unkn Cause Follow-Up: Ca High ARNP [Primary Care Provider] - Comments: There were no concerning nor diagnostic findings on tonight's tests including the blood test, EKG, and the chest x-ray. The cause of your symptoms is not apparent at this time. I recommend that you follow-up with your primary care provider, next available appointment for reevaluation. Forms: PCP List Discharge Date/Time: 06/24/23 23:19
[2023-06-24 23:19] VITALS: BP 155/86; O2SAT 98
== END 2023-06-24 23:19 | disposition home or self-care (01) ==
LOC: ED 20:31
DX: R07.9 Chest pain, unspecified (principal); Z79.899 Other long term (current) drug therapy
CPT/HCPCS: 36415; 80053; 83690; 83880; 84484; 85025; 93005; 99283; 99284

== ENCOUNTER 2024-02-23 19:57 | Emergency (ER) | payer OTHER ==
[2024-02-23 20:33] LABS: BASOPHILS % (AUTO) 0.2 %; EOSINOPHILS # (AUTO) 0.2 10^3/uL (0.0-0.7); EOSINOPHILS % (AUTO) 1.7 %; HCT - HEMATOCRIT 39.5 % (37.0-47.0); HGB - HEMOGLOBIN 12.6 g/dL (12.0-16.0); LYMPHOCYTES # (AUTO) 1.4 10^3/uL (1.5-3.5); LYMPHOCYTES % (AUTO) 15.8 %; MEAN CORPUSCULAR HEMOGLOBIN 28.6 pg (27.0-31.0); MEAN CORPUSCULAR HGB CONC 31.9 g/dL (32.0-36.0); MEAN CORPUSCULAR VOLUME 89.8 fL (81.0-99.0); MEAN PLATELET VOLUME 9.4 fL (7.9-10.8); MONOCYTES # (AUTO) 0.5 10^3/uL (0.0-1.0); MONOCYTES % (AUTO) 5.8 %; NEUTROPHILS # (AUTO) 6.8 10^3/uL (1.5-6.6); NEUTROPHILS % (AUTO) 76.3 %; PLT - PLATELET COUNT 279 10^3/uL (130-450); RED CELL DISTRIBUTION WIDTH 12.3 % (12.0-15.0)
--- NOTE | 2024-02-23 20:33 | ED Physician Documentation ---
History of Present Illness - Stated complaint Stated Complaint: LOWER BACK PX/ - Chief complaint Chief Complaint: Abd Pain - History obtained from History obtained from: Patient - History of Present Illness Timing: How many days ago (2) Pain level max: 9 Pain level now: 7 - Additonal information Additional information: 53-year-old female presents to the emergency department with lower abdominal pain and right-sided flank pain. Started yesterday, worsened today. Has had diverticulitis in the past. No vomiting or diarrhea. No blood in the stool. No dysuria, no urinary frequency. No hematuria. No fevers. No chills. She took Excedrin this morning without relief. 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 - Present Medications Home Medications: Ambulatory Orders Medication Instructions Recorded Confirmed Omeprazole [PriLOSEC] 40 mg PO DAILY 04/13/14 02/23/24 estradioL [Estradiol] 2.5 mg PO DAILY 08/22/16 02/23/24 Progesterone, Micronized 2.5 mg PO DAILY 10/24/16 02/23/24 [Progesterone] Ciprofloxacin HCl [Cipro] 500 mg PO BID #20 tablet 02/23/24 Losartan [Cozaar] 100 mg PO DAILY 02/23/24 02/23/24 metroNIDAZOLE [Flagyl] 500 mg PO BID #20 tablet 02/23/24 - Allergies Allergies/Adverse Reactions: Allergies Allergy/AdvReac Type Severity Reaction Status Date / Time amoxicillin [Amoxicillin] Allergy Hives Verified 02/23/24 20:22 - Social History Does the pt smoke?: No Smoking Status: Never smoker Does the pt drink ETOH?: Yes Does the pt have substance abuse?: No - POLST Patient has POLST: No PD ED PE NORMAL - Vitals Vital signs reviewed: Yes - General General: Alert and oriented X 3, No acute distress - HEENT HEENT: PERRL, Moist mucous membranes - Neck Neck: Supple, no meningeal sign - Cardiac Cardiac: RRR, Strong equal pulses - Respiratory Respiratory: No respiratory distress, Clear bilaterally - Abdomen Abdomen: Soft, Non distended, Other (Tender to palpation left lower quadrant and suprapubic without peritoneal signs) - Back Back: No CVA TTP, No spinal TTP - Derm Derm: Warm and dry - Extremities Extremities: No edema - Neuro Neuro: Alert and oriented X 3 - Psych Psych: Normal mood, Normal affect Results - Vitals Vitals: Vital Signs - 24 hr 02/23/24 02/23/24 20:02 22:03 Temperature 36.8 C Heart Rate 100 102 H Respiratory 18 18 Rate Blood Pressure 188/90 H 162/83 H O2 Saturation 99 100 Oxygen O2 Source Room air - Labs Labs: Laboratory Tests 02/23/24 02/23/24 02/23/24 20:20 20:20 20:45 WBC 9.0 RBC 4.40 Hgb 12.6 Hct 39.5 MCV 89.8 MCH 28.6 MCHC 31.9 L RDW 12.3 Plt Count 279 MPV 9.4 Neut # (Auto) 6.8 H Lymph # (Auto) 1.4 L [place] # (Auto) 0.5 Eos # (Auto) 0.2 Baso # (Auto) 0.0 Absolute Nucleated RBC 0.00 Nucleated RBC % 0.0 Sodium 137 Potassium 4.0 Chloride 103 Carbon Dioxide 25 Anion Gap 9.0 BUN 13 Creatinine 0.9 Estimated GFR (MDRD) 65 L Glucose 122 H Calcium 9.8 Total Bilirubin 0.4 AST 19 ALT 16 Alkaline Phosphatase 85 Total Protein 7.9 Albumin 4.7 Globulin 3.2 Albumin/Globulin Ratio 1.5 Lipase 25 Urine Color YELLOW Urine Clarity CLEAR Urine pH 6.5 Ur Specific [place] 1.010 Urine Protein NEGATIVE Urine Glucose (UA) NEGATIVE Urine Ketones NEGATIVE Urine Occult Blood TRACE-LYSE Urine Nitrite NEGATIVE Urine Bilirubin NEGATIVE Urine Urobilinogen 0.2 (NORMAL) Ur Leukocyte Esterase NEGATIVE Ur Microscopic Review NOT INDICATED Urine Culture Comments NOT INDICATED - Rads (name of study) CT abdomen pelvis Relevant Findings:: Final report received, See rad report PD Medical Decision Making - ED course Complexity details: reviewed results, re-evaluated patient, considered differential, d/w patient ED course: CT scan consistent with acute diverticulitis without perforation or abscess. Patient is well-appearing, nontoxic. Afebrile. no significant leukocytosis. Tolerating p.o. without difficulty. Received IV Toradol for pain. She is allergic to amoxicillin, discussed risk and benefits o f antibiotics including the black box warnings on fluoroquinolones as well as C. difficile infection. We will treat with Cipro and Flagyl. Patient will follow-up with her doctor for colonoscopy after treatment. Patient counseled regarding signs and symptoms for which I believe and urgent re-evaluation would be necessary. Patient with good understanding of and agreement to plan and is comfortable going home at this time This document was made in part using voice recognition software. While efforts are made to proofread this document, sound alike and grammatical errors may occur. Departure - Departure Disposition: 01 Home, Self Care Clinical Impression: Diverticulitis Condition: Good Instructions: ED Diverticulitis Follow-Up: Ca High ARNP [Primary Care Provider] - As Needed Prescriptions: Ciprofloxacin HCl [Cipro] 500 mg PO BID #20 tablet metroNIDAZOLE [Flagyl] 500 mg PO BID #20 tablet Comments: Your pressure presents were sent to [facility] in [place]. You have diverticulitis on your CT scan tonight. There is no perforation or abscess. Return for fevers, worsening pain or other new or worrisome symptoms. When your symptoms are resolved, you should have a colonoscopy, this can be ordered by your doctor. EXAM: [id number] CT/ABPEW ([id number]) PROCEDURE: Abdomen/Pelvis W INDICATIONS: bilateral lower abd pain CONTRAST: 100 ML OMNI 200 TECHNIQUE: After the administration of intravenous contrast, a CT scan of the abdomen and pelvis was performed. Images were recorded and evaluated at appropriate window settings. Reformats: coronal and sagittal. For radiation dose reduction, the following was used: automated exposure control, adjustment of mA and/or kV according to patient size. COMPARISON: 06/28/2017 FINDINGS: Image quality: Diagnostic. Lower chest: Unremarkable. Liver: No solid mass. Gallbladder and biliary tree: Surgically absent. No biliary dilation, accounting for post- cholecystectomy state. Spleen: No splenomegaly. Pancreas: No pancreatic ductal dilation. Adrenals: No adrenal nodule. Kidneys and ureters: No hydronephrosis. No renal cystic lesion which requires follow up. No solid mass. Stomach, bowel and peritoneum: No bowel distension. No pathologic free fluid. Diverticulosis with wall thickening and pericolonic inflammation involving the sigmoid colon, consistent with acute diverticulitis. No organized fluid collections or extraluminal gas. Normal appendix. Lymph nodes: No central or retroperitoneal adenopathy. Vessels: No infrarenal aortic aneurysm. PELVIS Reproductive organs: Unremarkable. Bladder: No abnormal wall thickening, accounting for underdistention. Pelvic lymph nodes: No pelvic adenopathy by size criteria. Bones: No aggressive osseous abnormality. Mild degenerative changes. Other: No significant ventral or inguinal hernia. IMPRESSION: Acute sigmoid diverticulitis. No organized fluid collections or extraluminal gas. Forms: PCP List
[2024-02-23 20:48] LABS: ALBUMIN 4.7 g/dL (3.2-5.5); ALBUMIN/GLOBULIN RATIO 1.5 (1.0-2.2); BILIRUBIN,TOTAL 0.4 mg/dL (0.2-1.0); CALCIUM 9.8 mg/dL (8.5-10.3); CREATININE 0.9 mg/dL (0.6-1.3); TOTAL PROTEIN 7.9 g/dL (6.4-8.9)
[2024-02-23 21:04] LABS: BILIRUBIN,URINE NEGATIVE (NEGATIVE); GLUCOSE, URINE (UA) NEGATIVE (NEGATIVE); KETONES,URINE (UA) NEGATIVE (NEGATIVE); LEUKOCYTE ESTERASE, URINE NEGATIVE (NEGATIVE); NITRITE,URINE NEGATIVE (NEGATIVE); OCCULT BLOOD,URINE TRACE-LYSE (NEGATIVE); PH,URINE 6.5 PH (5.0-7.5); PROTEIN,URINE NEGATIVE (NEGATIVE); UROBILINOGEN,URINE 0.2 (NORMAL) E.U./dL (NORMAL)
[2024-02-23 21:06] LABS: CLARITY,URINE CLEAR (CLEAR)
[2024-02-23] MEDS ORDERED: iohexoL-300 100 ML VIAL ONE (21:32)
[2024-02-23] MEDS: KETOROLAC 30 MG/ML VIAL IVP STA (21:48)
[2024-02-23] MEDS: iohexoL-300 100 ML VIAL IVP ONE (21:56)
[2024-02-23 22:07] VITALS: O2SAT 100
--- NOTE | 2024-02-23 22:15 | CT Report ---
PROCEDURE: Abdomen/Pelvis W INDICATIONS: bilateral lower abd pain CONTRAST: 100 ML OMNI 200 TECHNIQUE: After the administration of intravenous contrast, a CT scan of the abdomen and pelvis was performed. Images were recorded and evaluated at appropriate window settings. Reformats: coronal and sagittal. F or radiation dose reduction, the following was used: automated exposure control, adjustment of mA and /or kV according to patient size. COMPARISON: 06/28/2017 FINDINGS: Image quality: Diagnostic. Lower chest: Unremarkable. Liver: No solid mass. Gallbladder and biliary tree: Surgically absent. No biliary dilation, accounting for post-cholecystec [place] state. Spleen: No splenomegaly. Pancreas: No pancreatic ductal dilation. Adrenals: No adrenal nodule. Kidneys and ureters: No hydronephrosis. No renal cystic lesion which requires follow up. No solid mas s. Stomach, bowel and peritoneum: No bowel distension. No pathologic free fluid. Diverticulosis with wal l thickening and pericolonic inflammation involving the sigmoid colon, consistent with acute divertic ulitis. No organized fluid collections or extraluminal gas. Normal appendix. Lymph nodes: No central or retroperitoneal adenopathy. Vessels: No infrarenal aortic aneurysm. PELVIS Reproductive organs: Unremarkable. Bladder: No abnormal wall thickening, accounting for underdistention. Pelvic lymph nodes: No pelvic adenopathy by size criteria. Bones: No aggressive osseous abnormality. Mild degenerative changes. Other: No significant ventral or inguinal hernia. IMPRESSION: Acute sigmoid diverticulitis. No organized fluid collections or extraluminal gas. Reviewed by: Chago Ramirez MD on 02/23/2024 10:14 PM PDT Approved by: Chago Ramirez MD on 02/23/2024 10:14 PM PDT Station ID: [id number]
[2024-02-23] MEDS: CIPROFLOXACIN 250 MG TABLET PO STA (22:34)
[2024-02-23] MEDS: metroNIDAZOLE 250 MG TABLET PO STA (22:34)
[2024-02-23 22:45] VITALS: BP 142/89
== END 2024-02-23 22:45 | disposition home or self-care (01) ==
LOC: ED 19:57
DX: K57.32 Diverticulitis of large intestine without perforation or abscess without bleeding (principal); I10 Essential (primary) hypertension; K21.9 Gastro-esophageal reflux disease without esophagitis; Z90.49 Acquired absence of other specified parts of digestive tract; Z79.899 Other long term (current) drug therapy
CPT/HCPCS: 36415; 74177; 80053; 81003; 83690; 85025; 96374; 99283; 99284; A9270; Q9967; 81001; 87086

== ENCOUNTER 2024-03-12 08:04 | Outpatient (CLI) | payer OTHER ==
[2024-03-12 12:09] LABS: BASOPHILS % (AUTO) 0.5 %; EOSINOPHILS # (AUTO) 0.2 10^3/uL (0.0-0.7); EOSINOPHILS % (AUTO) 4.9 %; HCT - HEMATOCRIT 38.6 % (37.0-47.0); HGB - HEMOGLOBIN 12.4 g/dL (12.0-16.0); LYMPHOCYTES # (AUTO) 1.4 10^3/uL (1.5-3.5); LYMPHOCYTES % (AUTO) 33.3 %; MEAN CORPUSCULAR HEMOGLOBIN 29.1 pg (27.0-31.0); MEAN CORPUSCULAR HGB CONC 32.1 g/dL (32.0-36.0); MEAN CORPUSCULAR VOLUME 90.6 fL (81.0-99.0); MEAN PLATELET VOLUME 9.5 fL (7.9-10.8); MONOCYTES # (AUTO) 0.2 10^3/uL (0.0-1.0); MONOCYTES % (AUTO) 4.9 %; NEUTROPHILS # (AUTO) 2.3 10^3/uL (1.5-6.6); NEUTROPHILS % (AUTO) 56.2 %; PLT - PLATELET COUNT 300 10^3/uL (130-450); RED BLOOD COUNT 4.26 10^6/uL (4.20-5.40); RED CELL DISTRIBUTION WIDTH 12.6 % (12.0-15.0); WHITE BLOOD COUNT 4.1 x10^3/uL (4.8-10.8)
[2024-03-12 12:19] LABS: ESTIMATED AVERAGE GLUCOSE 134 mg/dL (70-100); HEMOGLOBIN A1c% 6.3 % (4.27-6.07)
[2024-03-12 12:30] LABS: THYROID STIMULATING HORMONE 1.43 uIU/mL (0.34-5.60)
[2024-03-12 12:41] LABS: ALBUMIN 4.5 g/dL (3.2-5.5); ALBUMIN/GLOBULIN RATIO 1.6 (1.0-2.2); ALKALINE PHOSPHATASE 75 IU/L (42-121); ALT ALANINE AMINOTRANSFERASE 20 IU/L (10-60); AST ASPARTATE AMINOTRANSFERASE 20 IU/L (10-42); BILIRUBIN,TOTAL 0.6 mg/dL (0.2-1.0); BUN - BLOOD UREA NITROGEN 16 mg/dL (6-20); CALCIUM 9.9 mg/dL (8.5-10.3); CARBON DIOXIDE - CO2 26 mmol/L (21-32); CHLORIDE 101 mmol/L (101-111); CHOL/HDL RATIO 3.9 (<4.4); CHOLESTEROL 237 mg/dL; CREATININE 0.8 mg/dL (0.6-1.3); GFR - MDRD 75 (>89); GLUCOSE 114 mg/dL (74-104); HDL CHOLESTEROL 61 mg/dL; LDL CHOLESTEROL,CALCULATED 151 mg/dL; LDL/HDL RATIO 2.5 (<4.4); POTASSIUM 4.5 mmol/L (3.5-4.5); SODIUM 135 mmol/L (135-145); TOTAL PROTEIN 7.4 g/dL (6.4-8.9); TRIGLYCERIDES 124 mg/dL (48-352); VLDL CHOLESTEROL 25 mg/dL
== END 2024-03-12 08:05 | disposition home or self-care (01) ==
LOC: LAB.N 08:04
PROVIDERS: ATTEND Nurse Practitioner Family
DX: Z00.00 Encounter for general adult medical examination without abnormal findings (principal)
CPT/HCPCS: 36415; 80053; 80061; 83036; 83721; 84443; 85025

== ENCOUNTER 2024-03-20 16:28 | Emergency (ER) | payer OTHER ==
--- NOTE | 2024-03-20 17:02 | ED Physician Documentation ---
History of Present Illness - Stated complaint Stated Complaint: CHILLS,BODY PX - Chief complaint Chief Complaint: Fever - History obtained from History obtained from: Patient - Additonal information Additional information: About 5 days ago she developed cellulitis of the right leg. She was seen in the clinic and was put on Bactrim alone. Over the last day or so she started to feel terrible with chills, body aches, high fevers. She denies respiratory complaints nor urinary complaints. 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 - Present Medications Home Medications: Ambulatory Orders Medication Instructions Recorded Confirmed Omeprazole [PriLOSEC] 40 mg PO DAILY 04/13/14 02/23/24 estradioL [Estradiol] 2.5 mg PO DAILY 08/22/16 02/23/24 Progesterone, Micronized 2.5 mg PO DAILY 10/24/16 02/23/24 [Progesterone] Losartan [Cozaar] 100 mg PO DAILY 02/23/24 02/23/24 - Allergies Allergies/Adverse Reactions: Allergies Allergy/AdvReac Type Severity Reaction Status Date / Time amoxicillin [Amoxicillin] Allergy Hives Verified 03/20/24 16:51 - Social History Does the pt smoke?: No Smoking Status: Never smoker Does the pt drink ETOH?: Yes Does the pt have substance abuse?: No - POLST Patient has POLST: No PD ED PE NORMAL - Vitals Vital signs reviewed: Yes (Febrile and tachycardic) - General General: Alert and oriented X 3, No acute distress - Cardiac Cardiac: RRR, No murmur - Respiratory Respiratory: No respiratory distress, Clear bilaterally - Abdomen Abdomen: Normal bowel sounds, Soft, Non tender - Extremities Extremities: Other (Beet red cellulitis without purulence to the right leg from the ankle to the calf.) - Neuro Neuro: Alert and oriented X 3 Results - Vitals Vitals: Vital Signs - 24 hr 03/20/24 03/20/24 03/20/24 16:42 16:58 18:38 Temperature 38.4 C H 37.7 C Heart Rate 121 H 116 H 109 H Respiratory 16 17 16 Rate Blood Pressure 152/79 H 144/92 H O2 Saturation 98 100 97 03/20/24 03/20/24 03/20/24 18:42 19:24 19:49 Temperature Heart Rate 87 Respiratory 16 17 Rate Blood Pressure 141/76 H 146/81 H O2 Saturation 99 Oxygen O2 Source Room air - Labs Labs: Laboratory Tests 03/20/24 03/20/24 03/20/24 17:13 17:13 17:13 WBC 3.2 L RBC 4.20 Hgb 12.0 Hct 37.4 MCV 89.0 MCH 28.6 MCHC 32.1 RDW 12.6 Plt Count 192 MPV 8.8 Neut # (Auto) 2.5 Lymph # (Auto) 0.2 L [place] # (Auto) 0.3 Eos # (Auto) 0.3 Baso # (Auto) 0.0 Absolute Nucleated RBC 0.00 Nucleated RBC % 0.0 Sodium 130 L Potassium 4.3 Chloride 98 L Carbon Dioxide 25 Anion Gap 7.0 BUN 16 Creatinine 1.1 Estimated GFR (MDRD) 52 L Glucose 113 H Lactic Acid 0.6 Calcium 9.4 Total Bilirubin 0.4 AST 20 ALT 17 Alkaline Phosphatase 78 Total Protein 7.0 Albumin 4.4 Globulin 2.6 Albumin/Globulin Ratio 1.7 Nasal Adenovirus (PCR) Nasal B. parapertussis DNA (PCR) Nasal Coronavir 229E PCR Nasal Coronavir HKU1 PCR Nasal Coronavir NL63 PCR Nasal Coronavir OC43 PCR Nasal Enterovir/Rhinovir PCR Nasal Influenza B PCR Nasal Influenza A PCR Nasal Parainfluen 1 PCR Nasal Parainfluen 2 PCR Nasal Parainfluen 3 PCR Nasal Parainfluen 4 PCR Nasal RSV (PCR) Nasal B.pertussis DNA PCR Nasal C.pneumoniae (PCR) [place] Human Metapneumo PCR Nasal M.pneumoniae (PCR) Nasal SARS-CoV-2 (PCR) 03/20/24 17:51 WBC RBC Hgb Hct MCV MCH MCHC RDW Plt Count MPV Neut # (Auto) Lymph # (Auto) [place] # (Auto) Eos # (Auto) Baso # (Auto) Absolute Nucleated RBC Nucleated RBC % Sodium Potassium Chloride Carbon Dioxide Anion Gap BUN Creatinine Estimated GFR (MDRD) Glucose Lactic Acid Calcium Total Bilirubin AST ALT Alkaline Phosphatase Total Protein Albumin Globulin Albumin/Globulin Ratio Nasal Adenovirus (PCR) NOT DETECTED Nasal B. parapertussis DNA (PCR) NOT DETECTED Nasal Coronavir 229E PCR NOT DETECTED Nasal Coronavir HKU1 PCR NOT DETECTED Nasal Coronavir NL63 PCR NOT DETECTED Nasal Coronavir OC43 PCR NOT DETECTED Nasal Enterovir/Rhinovir PCR NOT DETECTED Nasal Influenza B PCR NOT DETECTED Nasal Influenza A PCR NOT DETECTED Nasal Parainfluen 1 PCR NOT DETECTED Nasal Parainfluen 2 PCR NOT DETECTED Nasal Parainfluen 3 PCR NOT DETECTED Nasal Parainfluen 4 PCR NOT DETECTED Nasal RSV (PCR) NOT DETECTED Nasal B.pertussis DNA PCR NOT DETECTED Nasal C.pneumoniae (PCR) NOT DETECTED [place] Human Metapneumo PCR NOT DETECTED Nasal M.pneumoniae (PCR) NOT DETECTED Nasal SARS-CoV-2 (PCR) NOT DETECTED PD Medical Decision Making - ED course ED course: 53yo female with RLE cellulitis on bactrim monotherpay not improving and now febrile with tachycardia. Given IVF and IV ancef with improvement of tachycardia. Labs showing cbc with lymphopenia so more c/w viral symdrom -> biofire neg. Departure - Departure Disposition: 01 Home, Self Care Clinical Impression: Cellulitis Condition: Good Record reviewed to determine appropriate education?: Yes Instructions: Cellulitis Dc Comments: I sent your prescription electronically to [facility] in [place]. Elevate your leg is much as possible and return if worse. There are blood cultures pending and we will call you if they are positive and would want to see you again at that point. You do not need to take continue to take the trimethoprim sulfamethoxazole as that is not expected to work for this condition. Follow-up with your primary care physician for recheck Monday or Monday. Forms: PCP List Discharge Date/Time: 03/20/24 19:54
[2024-03-20] MEDS: SODIUM CHLORIDE 0.9% 2,653.53 ML IV STA (17:12)
[2024-03-20] MEDS ORDERED: ceFAZolin 2 GM VIAL ONE (17:23)
[2024-03-20] MEDS: KETOROLAC 15 MG/ML VIAL IVP STA (17:26)
[2024-03-20] MEDS: ceFAZolin (2G) 2 GM in SODIUM CHLORIDE 0.9% MINIBAG 100 ML IV STA (17:26)
[2024-03-20 17:29] LABS: EOSINOPHILS # (AUTO) 0.3 10^3/uL (0.0-0.7); EOSINOPHILS % (AUTO) 8.6 %; HCT - HEMATOCRIT 37.4 % (37.0-47.0); LYMPHOCYTES # (AUTO) 0.2 10^3/uL (1.5-3.5); LYMPHOCYTES % (AUTO) 5.9 %; MEAN CORPUSCULAR HEMOGLOBIN 28.6 pg (27.0-31.0); MEAN CORPUSCULAR HGB CONC 32.1 g/dL (32.0-36.0); MEAN PLATELET VOLUME 8.8 fL (7.9-10.8); MONOCYTES # (AUTO) 0.3 10^3/uL (0.0-1.0); NEUTROPHILS # (AUTO) 2.5 10^3/uL (1.5-6.6); NEUTROPHILS % (AUTO) 75.9 %; PLT - PLATELET COUNT 192 10^3/uL (130-450); RED CELL DISTRIBUTION WIDTH 12.6 % (12.0-15.0); WHITE BLOOD COUNT 3.2 x10^3/uL (4.8-10.8)
[2024-03-20] MEDS: ceFAZolin 2 GM/50 ML 2 GM/50 ML BAG IV STA (17:35)
[2024-03-20 17:37] LABS: ALBUMIN 4.4 g/dL (3.2-5.5); ALBUMIN/GLOBULIN RATIO 1.7 (1.0-2.2); BILIRUBIN,TOTAL 0.4 mg/dL (0.2-1.0); CALCIUM 9.4 mg/dL (8.5-10.3); CREATININE 1.1 mg/dL (0.6-1.3); POTASSIUM 4.3 mmol/L (3.5-4.5)
[2024-03-20 18:47] LABS: B. PARAPERTUSSIS- RESP PCR PAN NOT DETECTED; B. PERTUSSIS- RESP PCR PANEL NOT DETECTED; C. PNEUMONIAE- RESP PCR PANEL NOT DETECTED; CORONAVIRUS 229E-RESP PCR NOT DETECTED; CORONAVIRUS HKU1-RESP PCR NOT DETECTED; CORONAVIRUS NL63-RESP PCR NOT DETECTED; CORONAVIRUS OC43-RESP PCR NOT DETECTED; HUMAN METAPNEUMOVIRUS NOT DETECTED; INFLUENZA A- RESP PCR PANEL NOT DETECTED; INFLUENZA B - RESP PCR PANEL NOT DETECTED; M. PNEUMONIAE- RESP PCR PANEL NOT DETECTED; PARAINFLUENZA VIRUS 1 NOT DETECTED; PARAINFLUENZA VIRUS 2 NOT DETECTED; PARAINFLUENZA VIRUS 3 NOT DETECTED; PARAINFLUENZA VIRUS 4 NOT DETECTED; RHINOVIRUS/ENTEROVIRUS NOT DETECTED; RSV- RESP PCR PANEL NOT DETECTED; SARS-CoV-2 -RESP PCR PANEL NOT DETECTED
[2024-03-20] MEDS: predniSONE 20 MG TABLET PO STA (19:27)
[2024-03-20 19:59] VITALS: BP 146/81; O2SAT 99
== END 2024-03-20 19:54 | disposition home or self-care (01) ==
LOC: ED 16:28
DX: L03.115 Cellulitis of right lower limb (principal); I10 Essential (primary) hypertension
CPT/HCPCS: 36415; 80053; 83605; 85025; 87040; 87633; 96361; 96365; 96375; 99283; 99284; J7512

== ENCOUNTER 2024-04-06 10:48 | Outpatient (CLI) | payer OTHER ==
[2024-04-06 11:18] LABS: BASOPHILS % (AUTO) 0.7 %; EOSINOPHILS # (AUTO) 0.2 10^3/uL (0.0-0.7); EOSINOPHILS % (AUTO) 3.5 %; HCT - HEMATOCRIT 37.9 % (37.0-47.0); HGB - HEMOGLOBIN 12.1 g/dL (12.0-16.0); LYMPHOCYTES # (AUTO) 1.3 10^3/uL (1.5-3.5); LYMPHOCYTES % (AUTO) 31.4 %; MEAN CORPUSCULAR HEMOGLOBIN 28.5 pg (27.0-31.0); MEAN CORPUSCULAR HGB CONC 31.9 g/dL (32.0-36.0); MEAN CORPUSCULAR VOLUME 89.2 fL (81.0-99.0); MEAN PLATELET VOLUME 8.8 fL (7.9-10.8); MONOCYTES # (AUTO) 0.3 10^3/uL (0.0-1.0); MONOCYTES % (AUTO) 6.9 %; NEUTROPHILS # (AUTO) 2.4 10^3/uL (1.5-6.6); NEUTROPHILS % (AUTO) 57.3 %; PLT - PLATELET COUNT 269 10^3/uL (130-450); RED BLOOD COUNT 4.25 10^6/uL (4.20-5.40); RED CELL DISTRIBUTION WIDTH 12.3 % (12.0-15.0); WHITE BLOOD COUNT 4.2 x10^3/uL (4.8-10.8)
[2024-04-06 11:36] LABS: CALCIUM 9.7 mg/dL (8.5-10.3); CREATININE 0.8 mg/dL (0.6-1.3); POTASSIUM 4.3 mmol/L (3.5-4.5)
--- NOTE | 2024-04-07 20:10 | XRAY Report ---
PROCEDURE: Tib/Fib RT INDICATIONS: ERYTHEMA TECHNIQUE: 2 views of the tibia and fibula were acquired. COMPARISON: None. FINDINGS: Bones: No acute fractures or dislocations. No suspicious bony lesions. Tiny calcaneal enthesophyt e. Soft tissues: Nonspecific soft tissue edema in the distal lower leg. IMPRESSION: No acute osseous abnormality. If there is clinical concern or persistent symptoms, additional imaging such as repeat radiographs or advanced imaging (e.g. CT, MRI) may be helpful for further evaluation. Reviewed by: Jeferson Cummins MD on 04/07/2024 8:09 PM PDT Approved by: Jeferson Cummins MD on 04/07/2024 8:09 PM PDT Station ID: [id number]
== END 2024-04-06 10:49 | disposition home or self-care (01) ==
LOC: DI 10:48
PROVIDERS: ATTEND Emergency Medicine
DX: L53.9 Erythematous condition, unspecified (principal)
CPT/HCPCS: 36415; 80048; 85025; 85379